=== PATIENT | male | born 1990 | race Caucasian/White ===

== ENCOUNTER 2018-02-19 19:08 | Emergency (ER) | payer BC ==
[~2018-02-19] VITALS: Ht 172.7 cm; Wt 96.4 kg
[2018-02-19 21:24] VITALS: BP 134/70
== END 2018-02-19 21:25 | disposition home or self-care (01) ==
LOC: EMS 19:10
DX: R00.2 Palpitations (principal); R07.89 Other chest pain
CPT/HCPCS: 93005

== ENCOUNTER 2018-06-10 12:17 | Emergency (ER) | payer BC ==
[~2018-06-10] VITALS: Ht 170.2 cm; Wt 97.3 kg
[2018-06-10 15:15] VITALS: BP 128/79
== END 2018-06-10 15:15 | disposition home or self-care (01) ==
LOC: EMS 12:21
DX: M94.0 Chondrocostal junction syndrome [Tietze] (principal)
CPT/HCPCS: 93005